=== PATIENT | male | born 1990 | race Caucasian/White ===

== ENCOUNTER 2016-10-24 07:48 | Emergency (ER) | payer OTHER ==
[~2016-10-24] VITALS: Ht 180.3 cm; Wt 88.5 kg
[2016-10-24 07:57] VITALS: BP 135/79
[2016-10-24] MEDS ORDERED: DEXTROAMP-AMPHE20 MG PO (08:01)
[2016-10-24] MEDS ORDERED: DICLOFENAC SODI75 M2 PO (08:42)
[2016-10-24] MEDS ORDERED: BACTRIM DS TAB1 EACH PO (08:42)
[2016-10-24] MEDS ORDERED: CEPHALEXIN500 M3 PO (08:42)
--- NOTE | 2016-10-24 08:42 | ED HAND/WRIST INJURY COMPLAINT ---
See Addendum History of Present Illness General Chief Complaint: Hand or Wrist Injury Stated Complaint: RT THUMB PAIN NO INJURY Source: patient Exam Limitations: no limitations Vital Signs & Intake/Output Vital Signs & Intake/Output Vital Signs Date Time Temp Pulse Resp B/P Pulse O2 O2 Flow FiO2 Ox Delivery Rate 10/24 0757 98.3 94 20 135/79 98 Room Air Allergies Coded Allergies: No Known Allergies (10/24/16) Reconcile Medications Dextroamphetamine/Amphetamine (Dextroamp-Amphetamin 20 MG Tab) 20 MG TABLET 1 TAB PO TID ADHD (Reported) PRESCRIBED TID AND THEN 1 TAB DAILY NEEDED. Triage Note: TRIAGE: PT TO ER C/C PAIN TO RT THUMB, STATES IT WOKE HIM UP FROM SLEEP AT 06:00. DENIES ANY INJURY. PAIN VARIES IN INTENSITY WITH HIGHEST RATING 9/10, CURRENTLY 7/10. REFUSES OFFERED PAIN MEDICATION AT TRIAGE. Triage Nurses Notes Reviewed? yes HPI: Patient presents for evaluation of right hand swelling particularly over the right thumb that began this morning. Patient awoke with the pain so is unable to state whether or not it began abruptly or gradually. Patient states IT began over the tip of the thumb and has begun to spread towards the wrist. The pain is described as mild achy pain that becomes sharp with palpation and movement. No known injury. Patient is currently finishing his basement. No associated fever or cold symptoms. Past History Travel History Traveled to [place] past 21 day No Medical History Any Pertinent Medical History? 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 No Review of Systems Review of Systems Constitutional: Reports: no symptoms. EENTM: Reports: no symptoms. Respiratory: Reports: no symptoms. Cardiovascular: Reports: no symptoms. GI: Reports: no symptoms. Genitourinary: Reports: no symptoms. Musculoskeletal: Reports: see HPI. Skin: Reports: no symptoms. Neurological/Psychological: Reports: no symptoms. Hematologic/Endocrine: Reports: no symptoms. Immunologic/Allergic: Reports: no symptoms. All Other Systems: Reviewed and Negative Physical Exam Physical Exam Hand Left: normal inspection Hand Right: SEE BELOW Progress Differential Diagnosis: cellulitis, sprain, TENDONITIS Plan of Care: ABX, NSAIDS,F/U PRN Departure Departure Disposition: HOME OR SELF CARE Condition: Stable Clinical Impression Primary Impression: Cellulitis of finger, right Referrals: PATIENT HAS NO PRIMARY CARE DR (PCP/Family) Additional Instructions: Voltaren as needed for pain or swelling. Keflex and Bactrim as prescribed. Follow-up with your primary care physician if not improving over the next 48-72 hours. Decrease activity with your right hand. Return if any concerns or sudden worsening. Thank you for choosing the [facility] for your care. It was a pleasure to serve you today. Mk Saini M.D. [facility] Departure Forms: Customer Survey General Discharge Information Prescriptions: Current Visit Scripts Cephalexin 1 CAP PO Q6 #28 CAP Sulfamethoxazole/Trimethoprim (Bactrim Ds Tablet) 1 TAB PO BID #14 TAB Diclofenac Sodium 1 TAB PO BID PRN PAIN #14 TAB
== END 2016-10-24 08:56 ==
LOC: ERH 07:48
DX: L03.011 Cellulitis of right finger (principal)